=== PATIENT | male | born 1995 | race Caucasian/White ===

== ENCOUNTER 2020-12-08 07:53 | Inpatient (IN) | payer MEDICAID ==
[~2020-12-08] VITALS: Ht 185.4 cm; Wt 63.5 kg
[2020-12-08] MEDS ORDERED: ZOLPIDEM TARTRATE 10 MG TABLET PO PRN (08:45)
[2020-12-08] MEDS ORDERED: HALOPERIDOL 5 MG TABLET PO PRN (08:45)
[2020-12-08] MEDS: SERTRALINE HCL 50 MG TABLET PO SCH (12:45)
[2020-12-08 15:00] VITALS: BP 114/71
[2020-12-08 15:14] VITALS: BP 114/71
[2020-12-08 16:05] VITALS: BP 114/71
[2020-12-08 17:00] VITALS: BP 141/87
[2020-12-08 18:06] VITALS: BP 121/71
[2020-12-08] MEDS ORDERED: IBUPROFEN 400 MG TABLET PO PRN (18:30)
[2020-12-08 22:03] VITALS: BP 111/67
[2020-12-09] VITALS (7 sets, daily range): BP systolic 116–147; BP diastolic 63–75
[2020-12-09] MEDS ORDERED: CloNIDine HCL 0.1 MG TABLET PO PRN (07:15)
[2020-12-09] MEDS ORDERED: MAGNESIUM HYDROXIDE SUSPENSION 30 ML UDCUP PO PRN (07:15)
[2020-12-09] MEDS ORDERED: PETROLATUM,WHITE 28 GM JELLY TP PRN (07:15)
[2020-12-09] MEDS ORDERED: LOPERAMIDE HCL 2 MG CAPSULE PO PRN (07:15)
[2020-12-09] MEDS ORDERED: GuaiFENesin/D-METHORPHAN [SUGAR-FREE] 200-20MG/10 ML SYRUP UDCUP PO PRN (07:15)
[2020-12-09] MEDS ORDERED: ACETAMINOPHEN 325 MG TABLET PO PRN (07:15)
[2020-12-09] MEDS ORDERED: DOCUSATE SODIUM 100 MG CAPSULE PO PRN (07:15)
[2020-12-09] MEDS ORDERED: IBUPROFEN 400 MG TABLET PO PRN (07:15)
[2020-12-09] MEDS ORDERED: ALBUTEROL SULFATE HFA 90 MCG/PUFF 8 GM INHALER IH PRN (07:15)
[2020-12-09] MEDS ORDERED: NICOTINE 14 MG/24 HOUR PATCH TD PRN (07:15)
[2020-12-09] MEDS ORDERED: MAG HYDROX/AL HYDROX/SIMETH ES 30 ML SUSPENSION UDCUP PO PRN (07:15)
[2020-12-09] MEDS ORDERED: ONDANSETRON HCL 4 MG TABLET PO PRN (07:15)
[2020-12-09 07:49] LABS: BASOPHILS % (AUTO) 0.2 % (0.0-2.0); EOSINOPHILS % (AUTO) 2.1 % (1.0-6.0); HEMATOCRIT 44.2 % (41-53); HEMOGLOBIN 15.1 g/dL (13.5-17.5); LYMPHOCYTES # (AUTO) 0.6 K/uL (1.0-4.8); LYMPHOCYTES % (AUTO) 8.4 % (22.0-44.0); MEAN CORPUSCULAR HEMOGLOBIN 32.6 pg (26.0-34.0); MEAN CORPUSCULAR HGB CONC 34.2 G/dL (31.0-37.0); MEAN CORPUSCULAR VOLUME 95 fL (80-100); MONOCYTES # (AUTO) 0.8 K/uL (0.1-1.0); MONOCYTES % (AUTO) 11.5 % (2.0-9.0); NEUTROPHILS # (AUTO) 5.5 K/uL (1.8-7.7); NEUTROPHILS % (AUTO) 77.8 % (40.0-70.0); PLATELET COUNT (AUTO) 200 K/uL (150-450); RED BLOOD CELL COUNT(AUTO) 4.65 MIL/uL (4.50-5.90); RED CELL DISTRIBUTION WIDTH 12.4 % (11.5-14.5)
[2020-12-09 08:17] LABS: ALANINE AMINOTRANSFERASE 33 U/L (12-78); ALBUMIN 4.1 g/dL (3.4-5.0); ALKALINE PHOSPHATASE 76 U/L (46-116); ANION GAP 6 mmol/L (8-16); ASPARTATE AMINOTRANSFERASE 22 U/L (15-37); CALCIUM, TOTAL 8.8 mg/dL (8.8-10.5); CARBON DIOXIDE 31 mmol/L (22-29); CHLORIDE 104 mmol/L (98-107); CHOL/HDL RATIO 2.9 (4.2-7.3); CHOLESTEROL 126 mg/dL (131-200); CREATININE 0.69 mg/dL (0.60-1.30); FREE T4 (FREE THYROXINE) 0.89 ng/dL (0.76-1.46); GLOMERULAR FILTR. RATE CALC > 60 mL/min (>60); GLUCOSE,RANDOM 94 mg/dL (70-110); HDL CHOLESTEROL 43 mg/dL (40-60); LDL CHOL (CALC.) 57 mg/dL (0-130); POTASSIUM 4.4 mmol/L (3.5-5.1); SODIUM SERUM 141 mmol/L (136-145); THYROID STIMULATING HORMONE 0.51 uIU/mL (0.36-3.74); TOTAL PROTEIN, SERUM 7.1 g/dL (6.4-8.2); TRIGLYCERIDES 130 mg/dL (15-150); UREA NITROGEN, BLOOD 12 mg/dL (7-18)
[2020-12-09] MEDS: SERTRALINE HCL 50 MG TABLET PO SCH (08:38)
[2020-12-09 08:43] LABS: HEMOGLOBIN A1C 5.2 % (3.8-5.6)
[2020-12-10 03:12] VITALS: BP 125/68
[2020-12-10 04:21] VITALS: BP 109/67
[2020-12-10] MEDS: LORazepam 2 MG TABLET PO PRN ×2 (05:26→20:50)
[2020-12-10 07:48] LABS: APPEARANCE,URINE CLEAR (CLEAR); BILIRUBIN,URINE NEGATIVE (NEGATIVE); GLUCOSE, URINE (UA) NEGATIVE (NEGATIVE); KETONES,URINE NEGATIVE (NEGATIVE); LEUKOCYTE ESTERASE ,URINE NEGATIVE (NEGATIVE); NITRATE,URINE NEGATIVE (NEGATIVE); OCCULT BLOOD,URINE NEGATIVE (NEGATIVE); PROTEIN,URINE NEGATIVE (NEGATIVE)
[2020-12-10 07:54] LABS: AMPHET/METH SCREEN,URINE NEGATIVE (NEGATIVE); BARBITURATE SCREEN, URINE NEGATIVE (NEGATIVE); BENZODIAZEPINES SCREEN,URINE NEGATIVE (NEGATIVE); CANNABINOID SCREEN,URINE NEGATIVE (NEGATIVE); COCAINE SCREEN,URINE NEGATIVE (NEGATIVE); METHADONE SCREEN, URINE NEGATIVE (NEGATIVE); OPIATE SCREEN,URINE NEGATIVE (NEGATIVE); PHENCYCLIDINE SCREEN,URINE NEGATIVE (NEGATIVE)
[2020-12-10 08:13] VITALS: BP 131/73
[2020-12-10] MEDS: SERTRALINE HCL 50 MG TABLET PO SCH (09:10)
[2020-12-10 16:20] VITALS: BP 152/77
[2020-12-10 16:47] VITALS: BP 152/77
[2020-12-10 19:28] VITALS: BP 117/66
[2020-12-11 00:30] VITALS: BP 110/76
[2020-12-11 05:52] VITALS: BP 110/76
[2020-12-11 05:55] VITALS: BP 110/70
[2020-12-11 05:57] VITALS: BP 110/76
[2020-12-11 08:28] VITALS: BP 126/71
[2020-12-11] MEDS: LORazepam 2 MG TABLET PO PRN (08:43)
[2020-12-11] MEDS: SERTRALINE HCL 50 MG TABLET PO SCH (09:28)
[2020-12-11] MEDS ORDERED: SERT-439 PO (09:36)
== END 2020-12-11 14:45 | disposition home or self-care (01) | DRG 885 ==
LOC: B3A 08:52
DX: F33.2 Major depressive disorder, recurrent severe without psychotic features (principal); E44.0 Moderate protein-calorie malnutrition; R45.851 Suicidal ideations; Z68.1 Body mass index [BMI] 19.9 or less, adult; F10.20 Alcohol dependence, uncomplicated; J45.909 Unspecified asthma, uncomplicated; Y90.8 Blood alcohol level of 240 mg/100 ml or more; R10.13 Epigastric pain; Z79.899 Other long term (current) drug therapy; Z91.5 Personal history of self-harm
CPT/HCPCS: 80053; 80061; 80307; 81003; 83036; 84436; 84439; 84443; 85025; G0480